=== PATIENT | female | born 1985 | race Caucasian/White ===

== ENCOUNTER 2021-10-01 23:49 | Day surgery (SDC) | payer MEDICAID, OTHER ==
[2021-10-02 00:32] VITALS: BMI 32.8
[2021-10-02 01:19] LABS: Fetal Membranes Rupture No Membranes Rupture (No Rupture)
[2021-10-02] MEDS ORDERED: hydrALAZINE 20 MG/ML VIAL SLOW IVP PRN (01:50)
== END 2021-10-02 03:20 | disposition home or self-care (01) ==
LOC: CSHLD/OP 23:49
PROVIDERS: ATTEND Student in an Organized Health Care Education/Training Program
DX: O99.891 Other specified diseases and conditions complicating pregnancy (principal); O47.1 False labor at or after 37 completed weeks of gestation; O99.013 Anemia complicating pregnancy, third trimester; O24.410 Gestational diabetes mellitus in pregnancy, diet controlled; N89.8 Other specified noninflammatory disorders of vagina; Z3A.39 39 weeks gestation of pregnancy; Z87.59 Personal history of other complications of pregnancy, childbirth and the puerperium; Z79.899 Other long term (current) drug therapy
CPT/HCPCS: 84112

== ENCOUNTER 2021-10-05 11:02 | Outpatient (CLI) | payer OTHER ==
[2021-10-05 21:48] LABS: SARS-CoV-2 PCR by NAA Not Detected (NotDetected)
== END 2021-10-05 11:03 | disposition home or self-care (01) ==
LOC: CSHLAB 11:02
PROVIDERS: ATTEND Emergency Medicine
DX: Z01.812 Encounter for preprocedural laboratory examination (principal); Z20.822 Contact with and (suspected) exposure to COVID-19
CPT/HCPCS: U0003; U0005

== ENCOUNTER 2021-10-07 19:00 | Inpatient (IN) | payer MEDICAID, OTHER, SELFPAY ==
[2021-10-07] MEDS ORDERED: Misoprostol 200 MCG TAB PR PRN (20:25)
[2021-10-07] MEDS ORDERED: Methylergonovine 0.2 MG/ML VIAL IM PRN (20:25)
[2021-10-07] MEDS ORDERED: Ondansetron PF 4 MG/2 ML Vial IVP PRN (20:25)
[2021-10-07] MEDS ORDERED: hydrALAZINE 20 MG/ML VIAL SLOW IVP PRN (20:25)
[2021-10-07] MEDS ORDERED: Lidocaine 1% (PF) 30 ML VIAL SC PRN (20:25)
[2021-10-07] MEDS ORDERED: Promethazine HCl 25 MG/ML VIAL IM PRN (20:25)
[2021-10-07] MEDS ORDERED: Diphenoxylate HCl/Atropine Tablet PO PRN (20:25)
[2021-10-07] MEDS ORDERED: Ibuprofen 800 MG TAB PO PRN (20:25)
[2021-10-07] MEDS ORDERED: Carboprost 250 MCG/ML AMP IM PRN (20:25)
[2021-10-07 20:39] VITALS: BMI 31.8
[2021-10-07] MEDS: Lactated Ringer's 1,000 ML IV SCH (20:45)
[2021-10-07 21:45] LABS: Hemoglobin 10.8 g/dL (12.0-15.5); Mean Corpuscular HGB CONC 32.6 g/dL (32.0-36.0); Mean Corpuscular Hemoglobin 27.6 pg (27.0-33.0); Mean Corpuscular Volume 84.4 fl (81.6-98.3); Mean Platelet Volume 11.7 fl (7.4-10.4); Platelet Count 176 10x3/uL (150-450); RBC Distribution Width 17.2 % (11.5-14.5); Red Blood Cell (RBC) Count 3.92 10x6/uL (3.90-5.03); White Blood Cell (WBC) Count 7.6 10x3/uL (3.5-10.5)
[2021-10-07 21:49] LABS: Glucose 106 mg/dL (70-105)
[2021-10-07 22:17] LABS: Syphilis Antibody Nonreactive (Nonreactive); Syphilis Antibody Index 0.05 S/CO (<1.00 Non-Reactive)
[2021-10-07 22:18] LABS: Hep B Surf Ag Non-Reactive S/CO (NonReactive)
[2021-10-07 22:19] LABS: HBSAg Index 0.19 S/CO (0-0.99)
[2021-10-07] MEDS: Misoprostol 100 MCG TAB VAG SCH (23:15)
[2021-10-08] MEDS: Misoprostol 100 MCG TAB VAG SCH ×3 (02:52→11:47)
[2021-10-08] MEDS: Lactated Ringer's 1,000 ML IV SCH (02:52)
[2021-10-08] MEDS ORDERED: Butorphanol Tartrate 1 MG/ML VIAL SLOW IVP PRN (05:52)
[2021-10-08] MEDS ORDERED: Butorphanol Tartrate 1 MG/ML VIAL ONE (06:04)
[2021-10-08] MEDS: NS w/ Oxytocin 30 units 500 ML IV SCH ×2 (07:35→08:15)
[2021-10-08] MEDS ORDERED: Morphine 4 MG/ML VIAL ONE ×2 (07:44→07:54)
[2021-10-08] MEDS ORDERED: Preparation H Ointment 28 GM TUBE PR PRN (11:41)
[2021-10-08] MEDS ORDERED: Lanolin Ointment 7 GM TUBE TOP PRN (11:41)
[2021-10-08] MEDS ORDERED: Bisacodyl 10 MG SUPP PR PRN (11:41)
[2021-10-08] MEDS ORDERED: hydrALAZINE 20 MG/ML VIAL SLOW IVP PRN (11:41)
[2021-10-08] MEDS ORDERED: Benzocaine-Menthol 82.5 ML CAN TOP PRN (11:41)
[2021-10-08] MEDS ORDERED: Milk Of Magnesia 30 ML UDCUP PO PRN (11:41)
[2021-10-08] MEDS ORDERED: Prenatal Vitamin 1 TAB PO SCH (12:00)
[2021-10-08] MEDS ORDERED: Docusate Calcium (SURFAK) 240 MG CAP PO SCH (12:00)
[2021-10-08] MEDS: Ibuprofen 600 MG TAB PO PRN ×2 (13:01→21:33)
[2021-10-08] MEDS: Ferrous Sulfate 325 MG TAB PO SCH (17:04)
[2021-10-08] MEDS: Docusate Calcium (SURFAK) 240 MG CAP PO SCH (21:33)
[2021-10-09] MEDS: Acetaminophen 325 MG TAB PO PRN ×2 (00:05→09:51)
[2021-10-09] MEDS: Ibuprofen 600 MG TAB PO PRN (04:37)
[2021-10-09 04:52] LABS: Hemoglobin 9.9 g/dL (12.0-15.5)
[2021-10-09 07:48] VITALS: BP 100/59; TEMP 98.1
[2021-10-09] MEDS ORDERED: Prenatal Vitamin 1 TAB PO SCH (09:00)
[2021-10-09] MEDS: Docusate Calcium (SURFAK) 240 MG CAP PO SCH (09:51)
[2021-10-09] MEDS: Ferrous Sulfate 325 MG TAB PO SCH (09:51)
== END 2021-10-09 13:30 | disposition home or self-care (01) | DRG 806 ==
LOC: CSHLD 19:36 → CSHPP 10-08 10:45
PROVIDERS: ADMIT Emergency Medicine; ATTEND Emergency Medicine
PROC: 10E0XZZ Delivery of Products of Conception, External Approach (ICD-10-PCS; principal; 2021-10-08)
PROC: 3E0DXGC Introduction of Other Therapeutic Substance into Mouth and Pharynx, External Approach (ICD-10-PCS; 2021-10-08)
DX: O24.420 Gestational diabetes mellitus in childbirth, diet controlled (principal); O71.3 Obstetric laceration of cervix; Z37.0 Single live birth; Z3A.40 40 weeks gestation of pregnancy; O99.02 Anemia complicating childbirth; D64.9 Anemia, unspecified; O70.0 First degree perineal laceration during delivery; O62.2 Other uterine inertia
CPT/HCPCS: 36415; 82947; 85014; 85018; 85027; 86780; 86850; 86900; 86901; 87340; J0595; J2270; J2405; J2590; J7120

== ENCOUNTER 2023-01-19 10:01 | Inpatient (IN) | payer MEDICAID, OTHER, SELFPAY ==
[2023-01-19 19:55] VITALS: BMI 28.3
[2023-01-19] MEDS ORDERED: Ondansetron PF 4 MG/2 ML Vial IVP PRN (20:35)
[2023-01-19] MEDS ORDERED: Promethazine HCl 25 MG/ML VIAL IM PRN (20:35)
[2023-01-19] MEDS ORDERED: Acetaminophen 500 MG TAB PO PRN (20:35)
[2023-01-19] MEDS ORDERED: Tranexamic Acid 1,000 MG in Sodium Chloride 0.9% 250 ML 250 ML IVPB PRN (20:35)
[2023-01-19] MEDS ORDERED: Ibuprofen 800 MG TAB PO PRN (20:35)
[2023-01-19] MEDS ORDERED: Methylergonovine 0.2 MG/ML VIAL IM PRN (20:35)
[2023-01-19] MEDS ORDERED: Misoprostol 200 MCG TAB PR PRN (20:35)
[2023-01-19] MEDS ORDERED: hydrALAZINE 20 MG/ML VIAL SLOW IVP PRN (20:35)
[2023-01-19] MEDS ORDERED: Lidocaine 1% (PF) 30 ML VIAL SC PRN (20:35)
[2023-01-19 21:03] LABS: Hemoglobin 11.1 g/dL (12.0-15.5); Mean Corpuscular HGB CONC 33.2 g/dL (32.0-36.0); Mean Corpuscular Hemoglobin 27.5 pg (27.0-33.0); Mean Corpuscular Volume 82.9 fl (81.6-98.3); Mean Platelet Volume 12.2 fl (7.4-10.4); Platelet Count 220 10x3/uL (150-450); RBC Distribution Width 15.5 % (11.5-14.5); Red Blood Cell (RBC) Count 4.03 10x6/uL (3.90-5.03); White Blood Cell (WBC) Count 8.6 10x3/uL (3.5-10.5)
[2023-01-19] MEDS ORDERED: NS w/ Oxytocin 30 units 500 ML IV SCH ×2 (21:30→22:30)
[2023-01-19 21:33] LABS: Syphilis Antibody Nonreactive (Nonreactive); Syphilis Antibody Index 0.06 S/CO (<1.00 Non-Reactive)
[2023-01-19 21:34] LABS: HBSAg Index 0.14 S/CO (0-0.99); Hep B Surf Ag Non-Reactive S/CO (NonReactive)
[2023-01-19] MEDS: Misoprostol 100 MCG TAB VAG SCH (22:47)
[2023-01-19 23:38] LABS: SARS-CoV-2 NAA Rapid Test DETECTED (NotDetected)
[2023-01-20] MEDS: Misoprostol 100 MCG TAB VAG SCH ×4 (02:04→19:41)
[2023-01-20] MEDS ORDERED: Levothyroxine Sodium 50 MCG TAB PO SCH (06:00)
[2023-01-20] MEDS ORDERED: Prenatal Vitamin 1 TAB PO SCH (09:00)
[2023-01-20] MEDS: Fentanyl 100 MCG/2 ML VIAL ONE ×2 (15:30→15:44)
[2023-01-20] MEDS ORDERED: CEFAZOLIN 2 GM VIAL ONE (16:06)
[2023-01-20] MEDS ORDERED: Fentanyl 100 MCG/2 ML VIAL SLOW IVP SCH ×2 (16:10→16:11)
[2023-01-20] MEDS ORDERED: CEFAZOLIN 2 GM in Sodium Chloride 0.9% 100 ML IVPB SCH (16:15)
[2023-01-20] MEDS ORDERED: Ondansetron PF 4 MG/2 ML Vial IVP PRN (17:09)
[2023-01-20] MEDS ORDERED: hydrALAZINE 20 MG/ML VIAL SLOW IVP PRN (17:09)
[2023-01-20] MEDS ORDERED: Lanolin Ointment 7 GM TUBE TOP PRN (17:09)
[2023-01-20] MEDS ORDERED: Milk Of Magnesia 30 ML UDCUP PO PRN (17:09)
[2023-01-20] MEDS ORDERED: Benzocaine-Menthol 82.5 ML CAN TOP PRN (17:09)
[2023-01-20] MEDS ORDERED: Bisacodyl 10 MG SUPP PR PRN (17:09)
[2023-01-20] MEDS ORDERED: Preparation H Ointment 28 GM TUBE PR PRN (17:09)
[2023-01-20] MEDS ORDERED: Ferrous Sulfate 325 MG TAB PO SCH (17:15)
[2023-01-20] MEDS ORDERED: Boostrix 0.5 ML (Tdap) VIAL (>/=7 yrs of age) IM ONE (18:00)
[2023-01-20] MEDS: Docusate 100 MG CAP PO SCH (21:48)
[2023-01-20] MEDS ORDERED: Ibuprofen 800 MG TAB PO SCH (22:00)
[2023-01-21] MEDS: Ibuprofen 800 MG TAB PO SCH ×2 (00:15→09:28)
[2023-01-21] MEDS ORDERED: Acetaminophen 325 MG TAB PO PRN (02:15)
[2023-01-21 06:24] LABS: #Basophils 0.1 10x3/uL (0.0-0.2); #Eosinphils 0.1 10x3/uL (0.0-0.5); #Monocytes 1.1 10x3/uL (0.0-1.1); #Neutrophils 7.3 10x3/uL (1.5-8.4); %Basophils 0.4 % (0.0-2.0); %Eosinophils 0.5 % (0.0-6.0); %Monocytes 9.4 % (0.0-10.0); %Neutrophils 64.9 % (40.0-75.0); Hemoglobin 10.7 g/dL (12.0-15.5); Mean Corpuscular HGB CONC 32.9 g/dL (32.0-36.0); Mean Corpuscular Hemoglobin 27.4 pg (27.0-33.0); Mean Corpuscular Volume 83.1 fl (81.6-98.3); Mean Platelet Volume 12.2 fl (7.4-10.4); Platelet Count 212 10x3/uL (150-450); RBC Distribution Width 15.8 % (11.5-14.5); Red Blood Cell (RBC) Count 3.91 10x6/uL (3.90-5.03); White Blood Cell (WBC) Count 11.3 10x3/uL (3.5-10.5)
[2023-01-21] MEDS ORDERED: Ferrous Sulfate 325 MG TAB PO SCH (08:00)
[2023-01-21] MEDS ORDERED: Prenatal Vitamin 1 TAB PO SCH (09:00)
[2023-01-21] MEDS: Docusate 100 MG CAP PO SCH (09:28)
[2023-01-21] MEDS ORDERED: HYDROcodone/Acetaminophen 5/325 mg Tablet PO PRN (09:39)
[2023-01-21] MEDS ORDERED: Levothyroxine Sodium 50 MCG TAB PO SCH (10:00)
[2023-01-21 11:34] VITALS: BP 104/56; TEMP 98.6
[2023-01-22] MEDS ORDERED: Levothyroxine Sodium 50 MCG TAB PO SCH (06:00)
== END 2023-01-21 18:45 | disposition home or self-care (01) | DRG 805 ==
LOC: CSHLD 19:09 → CSHPP 01-20 18:12
PROVIDERS: ADMIT Obstetrics & Gynecology; ATTEND Obstetrics & Gynecology
PROC: 3E0P7VZ Introduction of Hormone into Female Reproductive, Via Natural or Artificial Opening (ICD-10-PCS; 2023-01-19)
PROC: 8E0ZXY6 Isolation (ICD-10-PCS; 2023-01-19)
PROC: 10E0XZZ Delivery of Products of Conception, External Approach (ICD-10-PCS; principal; 2023-01-20)
PROC: 0KQM0ZZ Repair Perineum Muscle, Open Approach (ICD-10-PCS; 2023-01-20)
PROC: 10907ZC Drainage of Amniotic Fluid, Therapeutic from Products of Conception, Via Natural or Artificial Opening (ICD-10-PCS; 2023-01-20)
DX: O34.43 Maternal care for other abnormalities of cervix, third trimester (principal); U07.1 COVID-19; Z37.0 Single live birth; O98.52 Other viral diseases complicating childbirth; Z3A.39 39 weeks gestation of pregnancy; O99.284 Endocrine, nutritional and metabolic diseases complicating childbirth; O99.214 Obesity complicating childbirth; O99.02 Anemia complicating childbirth; D64.9 Anemia, unspecified; O69.81X0 Labor and delivery complicated by cord around neck, without compression, not applicable or unspecified; E03.9 Hypothyroidism, unspecified; O34.13 Maternal care for benign tumor of corpus uteri, third trimester; D25.1 Intramural leiomyoma of uterus; O99.892 Other specified diseases and conditions complicating childbirth; D27.0 Benign neoplasm of right ovary; O70.1 Second degree perineal laceration during delivery; Z79.899 Other long term (current) drug therapy; Z79.890 Hormone replacement therapy; Z86.39 Personal history of other endocrine, nutritional and metabolic disease; Z79.82 Long term (current) use of aspirin
CPT/HCPCS: 84443; 85025; 85027; 86780; 86850; 86900; 86901; 87340; J2001; J2590; J3010; U0002